=== PATIENT | female | born 1990 | race Caucasian/White ===

== ENCOUNTER 2023-09-07 17:47 | Emergency (ER) | payer OTHER, SELFPAY ==
[2023-09-07 18:28] VITALS: BP 138/93; PULSE 110; RESP 18; TEMP 36.8; O2SAT 100; BMI 34.4
--- NOTE | 2023-09-07 18:33 | ECG_ITS ---
Test Reason : DIZZINESS/TACHYCARDIA Blood Pressure : / mmHG Vent. Rate : 107 BPM Atrial Rate : 107 BPM P-R Int : 142 ms QRS Dur : 080 ms QT Int : 336 ms P-R-T Axes : 039 024 001 degrees QTc Int : 448 ms Sinus tachycardia Otherwise normal ECG No previous ECGs available Referred By: Generic ED Physician Electronically Signed By:KHANH SOOD MD
--- NOTE | 2023-09-07 18:49 | ED_ITS ---
HPI - Dizziness General Chief Complaint: Dizziness Stated Complaint: DIZZY Time Seen by Provider: 09/07/23 20:20 Source: patient Mode of arrival: ambulatory Limitations: no limitations History of Present Illness HPI Narrative: 32-year-old female who presents emergency department for evaluation of lightheadedness, dizziness, palpitations, numbness. 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 She states that this morning she had a bagel and then went to clean the house. She states she was working for approximately 4 hours with another section housekeeper. At around 14:50 hours she states she was standing in folding she is when she felt like she was going to pass out. She when outside and sat on a step. She states that her heart then started to be rapidly. She felt anxious and panicked. She then states she felt very hungry. Her symptoms eventually resolved after she drinks some water and electrolyte solution. Patient states that around 17:00 hours she was standing when she again felt like she was going to pass out. She got very hot. She states that her heart was racing and she can feel her heart pounding. She states that her entire body got tingly in her face got numb. She states she had a bed taste in her mouth and she had difficulty with her tongue. Patient states that she has never had anxiety or panic attacks. The patient has been under significant stress secondary to her mother being ill and the fact that she is caring for her mother. She also states that there has been work stressors as well as other life stressors. Patient denied fever, chills, chest pain, cough, shortness of breath, nausea, vomiting or diarrhea. She states that last week she did have bright red blood per rectum and was seen at [facility] and was told that she needs a colonoscopy. She states she is continuing to see bright red blood per rectum an occasional clots. She had 1 dark stool. Related Data Previous Rx's Medication Instructions Recorded lorazepam 1 mg tablet (Ativan) 1 mg PO TID PRN anxiety #10 tabs 09/07/23 Allergies Allergy/AdvReac Type Severity Reaction Status Date / Time bupropion [From Wellbutrin] Allergy Intermediate Seizure Verified 09/07/23 18:27 sulfamethoxazole Allergy Intermediate Hives Verified 09/07/23 18:27 [From Bactrim] trimethoprim [From Bactrim] Allergy Intermediate Hives Verified 09/07/23 18:27 Review of Systems 2 Review of Systems: Yes all other systems are reviewed and are negative [facility] Past Medical History [facility] Narrative: Past medical history: None. Social history: Patient does vape tobacco products. She denies alcohol use or drug use. Social History Social History Advance Directives: No Advance Directives Information Provided: No Physical Exam 2 Vital Signs: Vital Signs: Last Vital Signs Temp 98.3 F 09/07/23 18:28 Pulse 96 09/07/23 21:49 Resp 16 09/07/23 21:49 BP 144/95 H 09/07/23 21:49 Pulse Ox 99 09/07/23 21:49 O2 Del Method Room Air 09/07/23 21:49 BMI result Body Mass Index 34.4 Vital signs did reveal an elevated blood pressure of 144/95 otherwise unremarkable Exam: General: Awake, alert in no distress Head: Normocephalic, atraumatic EENT: PERRL, Lids normal, sclera normal, conjunctiva normal, nose normal , ears normal, throat without erythema or exudates Neck: Supple, no adenopathy, no trachea midline or C-spine tenderness Lung: breath sounds symmetric, no wheezing, rales or rhonchi Chest: symmetric movement, nontender Heart: regular rate and rhythm, normal S1, S2 no murmurs or rubs Abdomen: soft, non-tender, nondistended, normal bowel sounds Back: no vertebral tenderness, no CVAT Extremities: no deformities, moves all extremities symmetrically Skin: no rashes, no lesion, normal color and warmth Neuro: Awake, alert, oriented, normal speech, cranial nerves intact, moves all extremities symmetrically Psych: Pleasant, cooperative Course Course Course Narrative: This is an RME: Additional HPI, ROS, PE not included below will be deferred to primary provider. to old female who presents emergency department for evaluation of dizziness. Reportedly felt as an unsteadiness, denies room spinning sensation. Onset was after cleaning her home and she felt as though she was going to syncopize, and experiencing palpitations. Plan: labs, EKG Medications Administered Discontinued Medications Generic Name Dose Route Start Last Admin Trade Name Freq PRN Reason Stop Dose Admin Lorazepam 1 mg 09/07/23 20:58 09/07/23 21:07 Lorazepam 1 Mg Tablet PO 09/07/23 20:59 1 mg ONCE STA Administration Medical Decision Making Medical Decision Making MDM Narrative: 32-year-old female who presents emergency department for evaluation of 2 episodes of lightheadedness as if she was going to pass out, palpitations, a tingling this in her body and facial numbness. Patient's vital signs did reveal slightly elevated blood pressure otherwise unremarkable. Patient's physical examination was normal. Following evaluation was ordered: The CBC, CMP, troponin, EKG, urinalysis. My interpretation patient's laboratory evaluation as follows elevated white blood count 89669, low bicarb 20, elevated chloride 109. Troponin was below detectable limits. Urinalysis was negative. Patient's 12 EKG was unremarkable. Patient's presentation is consistent with hyperventilation syndrome/anxiety and I did discuss this with her. Patient was given Ativan 1 mg orally. She was given a prescription for Ativan 1 mg 3 times a day as needed for anxiety. She was given printed and verbal instructions and discharged home Differential Diagnosis Differential Diagnoses: The differential diagnosis associated with the presentation includes Differential diagnosis includes but is not limited to anxiety, hyperventilation syndrome, myocardial infarction, arrhythmia, palpitation Admission/Observation Consideration of admission/observation: Escalation of care including admission/observation considered Lab Data [facility] Lab Attestation statement: I reviewed the patient's lab results. See MDM above 09/07/23 18:59 09/07/23 18:59 Labs: Lab Results 09/07/23 Range/Units 18:59 WBC 12.4 H (4.8-10.8) X10*3/uL RBC 4.30 (4.20-5.50) X10*6/uL Hgb 13.1 (12.0-16.0) g/dl Hct 38.4 (37.0-47.0) % MCV 89.3 (80.0-98.0) fL MCH 30.5 (27.0-33.0) pg MCHC 34.1 (31.0-35.0) g/dl RDW 12.6 (11.0-16.0) % Plt Count 328 (160-400) X10*3/uL MPV 8.2 L (9.4-12.3) fL Immature Gran % (Auto) 0.4 (0.0-0.4) % Neut % (Auto) 77.4 H (45-73) % Lymph % (Auto) 15.9 L (20-40) % [place] % (Auto) 4.3 (2-11) % Eos % (Auto) 1.7 (0-4) % Baso % (Auto) 0.3 (0-2) % Lymph # (Auto) 2.0 (1.2-4.9) X10*3/uL [place] # (Auto) 0.5 (0.1-1.2) X10*3/uL Eos # (Auto) 0.2 (0.0-0.4) X10*3/uL Baso # (Auto) 0.0 (0.0-0.2) X10*3/uL Abs Immat Gran (auto) 0.05 H (0.00-0.03) X10*3/uL Absolute Neuts (auto) 9.6 H (2.0-8.3) x10*3/uL Absolute Nucleated RBC 0.000 (0.0-0.012) X10*3/uL Nucleated RBC % (auto) 0.0 (0.0-0.2) /100WBC Sodium 139 (135-145) mmol/L Potassium 3.7 (3.3-5.1) mmol/L Chloride 109 H (96-108) mmol/L Carbon Dioxide 20 L (22-29) mmol/L Anion Gap 14 (12-20) BUN 12 (9-16) mg/dL Creatinine 0.78 (0.5-1.4) mg/dL Estim Creat Clear Calc 96.8 Estimated GFR > 60 Random Glucose 111 (60-115) mg/dL Calcium 9.0 (8.4-10.2) mg/dL Troponin I High Sens < 2.7 (<3.5-17.0) ng/L Urine Color Yellow Urine Appearance Clear Urine pH 6.5 (5.0-9.0) Ur Specific [place] <= 1.005 (1.005-1.025) Urine Protein Negative (Neg-Trace) mg/dL Urine Glucose (UA) Negative (Negative) mg/dL Urine Ketones Negative (Negative) mg/dL Urine Blood Trace H (Negative) Urine Nitrite Negative (Negative) Ur Leukocyte Esterase Negative (Negative) Urine RBC 0-2 (0-2) /HPF Urine WBC 0-5 (0-5) /HPF Ur Squamous Epith Cells 0-2 (0-2) /HPF Urine Bacteria None Seen (None Seen) Hyaline Casts 0-2 (0-2) /LPF Independent Interpretation I performed an independent interpretation of an: EKG Interpretation: My independent interpretation of the patient's 12 EKG done at 18:45 hours is as follows: Sinus tachycardia with a rate of 107, normal NV interval, QRS duration QTC interval, no ST segment elevation, no ST segment depression, inverted T-wave in lead 3 and V1, no PACs, no PVCs except for the tachycardia this is a normal EKG. Prescription Management I considered prescription management with: Other (Benzodiazepine for anxiety) Discharge Plan Discharge Clinical Impression: Acute hyperventilation syndrome, Palpitation Patient Disposition: Home, Self-Care Instructions: Hyperventilation (ED) Additional Instructions: Your blood work was normal. Your EKG was unremarkable. Your symptoms are consistent with hyperventilation syndrome. This is your body's response to stress which then triggered lightheadedness, dizziness, palpitations (heart beating fast), numbness and tingling. This can also make you feel very anxious. Hyperventilation syndrome is more common when your under physical and mental stress as well. Once you experience hyperventilation/anxiety attack these can reoccur. I am prescribing Ativan however if you continue to have these attacks then you will need to talk to her doctor about getting on a medication that you can take daily to help reduce your number of attacks. Take Ativan 1 mg pills, 1 pill every 6 hours as needed for anxiety. This medication will make you sleepy, do not drive or work while taking this medication. This medication can be addicting, if your concerned about addiction you can ask the pharmacist for less medications or do not get the prescription filled. Follow-up with your doctor in 2 days. Please return to the emergency department if your symptoms get worse or if you develop any symptoms that are concerning to you. Prescriptions: New lorazepam [Ativan] 1 mg tablet 1 mg PO TID PRN (Reason: anxiety) Qty: 10 0RF Interventions: ED Discharge Assessment Last Done: 09/07/23 21:49 Discharge Date/Time: 09/07/23 21:50
[2023-09-07 19:08] LABS: MANUAL DIFF FLAG NO
[2023-09-07 19:09] LABS: Basophils Percent Auto 0.3 % (0-2); Eosinophils Absolute Auto 0.2 X10*3/uL (0.0-0.4); Eosinophils Percent Auto 1.7 % (0-4); Hematocrit 38.4 % (37.0-47.0); Hemoglobin 13.1 g/dl (12.0-16.0); Imm Gran Abs Auto 0.05 X10*3/uL (0.00-0.03); Imm Gran Pct Auto 0.4 % (0.0-0.4); Lymphocytes Percent Auto 15.9 % (20-40); Mean Corpuscular HGB Conc 34.1 g/dl (31.0-35.0); Mean Corpuscular Hemoglobin 30.5 pg (27.0-33.0); Mean Corpuscular Volume 89.3 fL (80.0-98.0); Mean Platelet Volume 8.2 fL (9.4-12.3); Monocytes Absolute Auto 0.5 X10*3/uL (0.1-1.2); Monocytes Percent Auto 4.3 % (2-11); Neutrophils Absolute Auto 9.6 x10*3/uL (2.0-8.3); Neutrophils Percent Auto 77.4 % (45-73); Platelet Count 328 X10*3/uL (160-400); Red Cell Distribution Width 12.6 % (11.0-16.0); White Blood Count 12.4 X10*3/uL (4.8-10.8)
[2023-09-07 19:12] LABS: Appearance Urine Clear; Color Urine Yellow; Glucose Urine UA Negative (Negative); Leukocyte Esterase Urine Negative (Negative); Nitrite Urine Negative (Negative); PH 6.5 (5.0-9.0); Specific Gravity - Urine <= 1.005 (1.005-1.025); UMIC TRIGGER UACC YES; Urine Blood Trace (Negative); Urine Ketones Negative (Negative); Urine Protein Negative (Neg-Trace)
[2023-09-07 19:17] LABS: Bacteria Urine None Seen (None Seen); Hyaline Casts Urine 0-2 /LPF (0-2); RBC Urine 0-2 /HPF (0-2); Squamous Epithelial Cell Urine 0-2 /HPF (0-2); WBC Urine 0-5 /HPF (0-5)
[2023-09-07 19:24] LABS: Anion Gap 14 (12-20); Blood Urea Nitrogen 12 mg/dL (9-16); Carbon Dioxide 20 mmol/L (22-29); Chloride 109 mmol/L (96-108); Creatinine Clr Calc Pharmacy 96.8; Estimated Glomerular Filt Rate > 60; Glucose Random 111 mg/dL (60-115); Potassium 3.7 mmol/L (3.3-5.1); Sodium 139 mmol/L (135-145)
[2023-09-07 19:33] LABS: Troponin-I High Sensitivity < 2.7 ng/L (<3.5-17.0)
[2023-09-07 20:16] VITALS: BP 137/97; PULSE 96; RESP 16; O2SAT 97
[2023-09-07] MEDS: LORazepam 1 MG TABLET PO (21:07)
[2023-09-07 21:49] VITALS: BP 144/95; PULSE 96; RESP 16; O2SAT 99
== END 2023-09-07 21:50 | disposition home or self-care (01) ==
PROVIDERS: Emergency Provider Emergency Medicine Emergency Medical Services
DX: R00.2 Palpitations (principal); R42 Dizziness and giddiness; F45.8 Other somatoform disorders; Z79.899 Other long term (current) drug therapy
CPT/HCPCS: 36415; 80048; 81001; 84484; 85025; 93005; 99283; 99285